=== PATIENT | female | born 1965 | race Caucasian/White ===

== ENCOUNTER 2016-12-11 07:08 | Day surgery (SDC) | payer OTHER ==
[~2016-12-11 07:08] MED LIST: Lactated Ringers 1,000 ML IV SCH
[2016-12-11] MEDS ORDERED: Propofol 200 MG/20 ML SDV ONE (09:03)
[2016-12-11] MEDS ORDERED: fentaNYL 100 MCG/2 ML SDV ONE (09:03)
[2016-12-11 10:16] VITALS: BP 131/77
--- NOTE | 2016-12-11 10:47 | OR ---
PREOPERATIVE DIAGNOSES: Positive Fit test, screening colonoscopy. POSTOPERATIVE DIAGNOSES: Normal colonoscopic exam, external hemorrhoid. PROCEDURE PROPOSED: Total flexible colonoscopy. PROCEDURE DONE: Total flexible colonoscopy. INDICATION: This is a 51-year-old female, found to have positive fit test. On recent physical, she denies any family history of colon cancer. She denies any symptomatology and she comes in for recommended colonoscopy. TECHNIQUE: The patient was brought to the endoscopy suite, placed in left lateral decubitus position. She was sedated with propofol per [employer]. The flexible video colonoscope was then passed transanally and under visualization advanced to the cecum. Examination revealed a normal ascending, transverse, descending, sigmoid, and rectal colon. There was no evidence of any diverticulosis, polyps, colitis or any other abnormalities. She was noted to have about a 1 cm moderately firm external hemorrhoid anteriorly and the scope was then withdrawn. She tolerated the procedure well. IMPRESSION: 1. Essentially normal colonoscopic exam. 2. A 1 cm external hemorrhoid. PLAN: The patient is reassured. I felt she could wait 10 years before she needs a repeat exam, if she desires to have the external hemorrhoid removed, I do feel this could be removed in the clinic under local anesthesia. SCM: 12/11/2016 09:30:35 MODL: 12/11/2016 10:36:44 /[id number]
== END 2016-12-11 10:10 | disposition home or self-care (01) ==
LOC: VM.SDS 07:08
PROVIDERS: ATTEND Surgery
DX: Z12.11 Encounter for screening for malignant neoplasm of colon (principal); K64.4 Residual hemorrhoidal skin tags; E66.9 Obesity, unspecified; Z98.890 Other specified postprocedural states
CPT/HCPCS: 45378; J2704; J3010; J7120